=== PATIENT | female | born 1935 | race Caucasian/White ===

== ENCOUNTER → 2016-09-17 | Outpatient (CLI) | payer OTHER, MEDICARE ==
[2016-09-17 17:04] LABS: CALCIUM 9.2 mg/dL (8.7-10.7); SERUM ALBUMIN 3.8 g/dL (3.5-4.8)
[2016-09-17 17:08] LABS: HEMOGLOBIN A1C 5.96 % (4.2-6.0)
== END ==
LOC: LAB 09:21
PROVIDERS: ATTEND Physician Assistant Medical
DX: E11.9 Type 2 diabetes mellitus without complications (principal); M81.0 Age-related osteoporosis without current pathological fracture
CPT/HCPCS: 80053; 83036; 84443